=== PATIENT | male | born 1970 | race African-American/Black ===

== ENCOUNTER 2017-09-09 05:27 | Emergency (ER) | payer OTHER ==
[~2017-09-09] VITALS: Ht 170.2 cm; Wt 86.2 kg
--- NOTE | 2017-09-09 05:38 | NUR ---
[employer] UNDER CUSTODY, FOR MEDICAL CLEARANCE. C/O NVD, CHILLS, RUNNY NOSE. PT AOX3 RR EVEN AND UNLABORED. NO SOB NOTED. NAD NOTED. NO NVD AT THIS TIME. PT NOT DIAPHORETIC. PT WAITING FOR MD SEGAL. [employer] AT BEDSIDE.
--- NOTE | 2017-09-09 06:05 | NUR ---
DR. CORDERO AT BEDSIDE FOR EVAL.
[2017-09-09] MEDS ORDERED: PROMETHAZINE HCL 50 MG/ML AMPUL IM ONE (06:30)
[2017-09-09] MEDS ORDERED: KETOROLAC TROMETHAMINE INJ 60 MG/2 ML VIAL IM ONE (06:30)
--- NOTE | 2017-09-09 06:31 | NUR ---
PT DISCHARGED TO [id number], OFFICER GIVEN ACI AND PRESCRIPTION, OFFICER AND PATIENT WALKED OUT OF THE ER WITH A STEADY GAIT.
[2017-09-09 06:35] VITALS: BP 122/75
== END 2017-09-09 06:36 ==
LOC: ER 05:29
DX: Z02.89 Encounter for other administrative examinations (principal); F11.23 Opioid dependence with withdrawal; Z86.19 Personal history of other infectious and parasitic diseases
CPT/HCPCS: 96372 ×2; 99284; A4606; Z7610